=== PATIENT | female | born 1955 | race Caucasian/White ===

== ENCOUNTER 2018-03-31 16:35 | Inpatient (IN) | payer OTHER ==
[~2018-03-31] VITALS: Ht 160 cm; Wt 66.5 kg
[~2018-03-31 16:35] MED LIST: ALBU1.25 NEB; ALPR0.5T99 PO; ARIP1TAB5 PO; ASPI81TA82 PO; DUONI INH; ESTR42.5V PV; FLUO20 PO; HYDR-3533 PO; REST15CA PO; SYMB160A INH; TIOT18I INH; ZITH250T PO
[2018-03-31 16:41] VITALS: BP 188/84; PULSE 115; RESP 26; TEMP 98.8; O2SAT 100
[2018-03-31] MEDS ORDERED: ASPIRIN 325 MG TAB PO ONE (17:15)
[2018-03-31] MEDS ORDERED: MORPHINE SULFATE 2 MG/ML SYRINGE IV PUSH ONE (17:15)
[2018-03-31] MEDS ORDERED: METOCLOPRAMIDE HCL 10 MG/2 ML VIAL IV PUSH ONE (17:15)
[2018-03-31] MEDS ORDERED: SODIUM CHLORIDE 0.9% FLUSH 10 ML FLUSH IVF PRN (17:15)
[2018-03-31] MEDS ORDERED: methylPREDNISolone SOD SUCC 125 MG/2 ML VIAL IV PUSH ONE (17:15)
[2018-03-31] MEDS: RESP: ALBUTEROL 2.5 MG/IPRATROPIUM 0.5 MG NEB (SCH) INH ×3 (17:28→23:39)
[2018-03-31] MEDS ORDERED: MORPHINE SULFATE 4 MG/ML INJ IV PUSH ONE (17:30)
[2018-03-31 17:35] LABS: AUTOMATED NEUTROPHIL # 17.3 TH/MM3 (1.8-7.7); BASOPHIL # 0.1 TH/MM3 (0-0.2); BASOPHIL % 0.3 % (0.0-2.0); EOSINOPHIL # 0.1 TH/MM3 (0-0.4); EOSINOPHIL % 0.4 % (0.0-4.0); HEMATOCRIT 37.5 % (35.0-46.0); HEMOGLOBIN 12.5 GM/DL (11.6-15.3); LYMPH % 5.7 % (9.0-44.0); LYMPHOCYTE # 1.1 TH/MM3 (1.0-4.8); MEAN CELL VOLUME 92.7 FL (80.0-100.0); MEAN CORPUSCULAR HEMOGLOBIN 30.8 PG (27.0-34.0); MEAN CORPUSCULAR HGB CONC 33.3 % (32.0-36.0); MEAN PLATELET VOLUME 7.5 FL (7.0-11.0); NEUT % 88.6 % (16.0-70.0); PLATELET COUNT 240 TH/MM3 (150-450); RED BLOOD COUNT 4.05 MIL/MM3 (4.00-5.30); RED CELL DISTRIBUTION WIDTH 14.4 % (11.6-17.2); WHITE BLOOD COUNT 19.6 TH/MM3 (4.0-11.0)
[2018-03-31 17:44] LABS: PROTHROMBIN TIME - PATIENT 10.2 SEC (9.8-11.6)
--- NOTE | 2018-03-31 17:47 | RADRPT ---
EXAM DATE: 03/31/2018 5:44 PM EDT AGE/SEX: 63 years / Female INDICATIONS: Shortness of breath for 1 month. CLINICAL DATA: This is the patient's initial encounter. Patient reports that signs and symptoms have been present for 1 month and indicates a pain score of 0/10. MEDICAL/SURGICAL HISTORY: Chronic obstructive pulmonary disease. Emphysema. Carcinoma, breast . Myocardial infarction. Mastectomy, left. Heart cath. COMPARISON: . FINDINGS: A single AP view of the chest demonstrates the lungs to be symmetrically aerated without evidence of mass, infiltrate or effusion. The cardiomediastinal contours are unremarkable. Surgical clips invol ving the left axilla. Osseous structures are intact. CONCLUSION: Negative examination. Electronically signed by: River Fajardo MD 03/31/2018 5:46 PM EDT
[2018-03-31 17:51] LABS: ALBUMIN 3.2 GM/DL (3.4-5.0); ALT (GPT) 13 U/L (10-53); AST (GOT) 9 U/L (15-37); BICARBONATE 26.3 MEQ/L (21.0-32.0); BLOOD UREA NITROGEN 12 MG/DL (7-18); CALCIUM 8.6 MG/DL (8.5-10.1); CHLORIDE 99 MEQ/L (98-107); CREATININE 0.88 MG/DL (0.50-1.00); GLOMERULAR FILTRATION RATE 65 ML/MIN (>89); GLUCOSE,RANDOM 89 MG/DL (74-106); SODIUM (NA) 134 MEQ/L (136-145)
[2018-03-31 17:55] LABS: ALKALINE PHOSPHATASE 104 U/L (45-117); TOTAL BILIRUBIN ADULT 0.3 MG/DL (0.2-1.0); TOTAL PROTEIN 6.9 GM/DL (6.4-8.2); TROPONIN I LESS THAN 0.02 NG/ML (0.02-0.05)
[2018-03-31 18:00] VITALS: RESP 20; O2SAT 98
[2018-03-31] MEDS ORDERED: IOHEXOL 350 MG/ML 10 ML VIAL (for RAD DIAG) IVCONTRAST ONE (18:54)
--- NOTE | 2018-03-31 19:00 | RADRPT ---
EXAM DATE: 03/31/2018 6:53 PM EDT AGE/SEX: 63 years / Female INDICATIONS: Shortness of breath. CLINICAL DATA: This is the patient's initial encounter. Patient reports that signs and symptoms have been present for 3 days and indicates a pain score of 2/10. MEDICAL/SURGICAL HISTORY: Cardiovascular disease. Chronic obstructive pulmonary disease. Carcinom a, breast. Mastectomy, bilateral. RADIATION DOSE: 7.58 CTDI (mGy) COMPARISON: CT pulmonary angiogram 07/09/2016. TECHNIQUE: Volumetric scanning was performed using a multi-row detector CT scanner during bolus infu sree of 75 ml Omnipaque 350 (iohexol) nonionic water-soluble contrast as a single exam dose. The diana a was post processed with a variety of visualization algorithms including full volume maximum intensi ty projection and sliding thin slab reformation. Using automated exposure control and adjustment of the mA and/or kV according to patient size, radiation dose was kept as low as reasonably achievable t o obtain optimal diagnostic quality images. FINDINGS: Pulmonary Arteries: No filling defects are seen in the pulmonary arteries out to the subsegmental ve ssels. The left and right pulmonary arteries are normal in diameter. Lung: Diffuse emphysematous change throughout both upper and lower lobes. No bronchiectasis. Mucous plugging involving the medial basilar segment of the left lower lobe without collapse. Mild atelectas is within the posterior basilar segment of the right lower lobe. Mild patchy infiltrate within the me dial segment of the right middle lobe.. Effusion: Small right posterior layering pleural effusion. No effusion on the left.. Mediastinum: Heart is normal in size. Tiny pericardial effusion. No adenopathy. Pulmonary arteries a nd aorta are normal in caliber.. Other: Surgical clips involving the left axilla. No axillary adenopathy. Bilateral breast implants. Stable hepatic cysts.. CONCLUSION: 1. No pulmonary embolus. 2. Emphysematous change. 3. Right middle lobe infiltrate. This may be infectious in etiology. 4. Small right effusion. 5. Small area of mucus plugging involving the left lower lobe without atelectasis. Electronically signed by: River Fajardo MD 03/31/2018 6:59 PM EDT
[2018-03-31] MEDS ORDERED: LEVOFLOXACIN 500 MG PREMIX INJ 100 ML IV ONE (19:30)
[2018-03-31 19:31] VITALS: BP 124/68; PULSE 112; RESP 18; O2SAT 99
[2018-03-31 20:28] LABS: BACTERIA, URINE RARE /hpf; BILIRUBIN, URINE NEG (NEG); BLOOD, URINE NEG (NEG); GLUCOSE,URINE NEG (NEG); KETONE, URINE NEG (NEG); NITRITE,URINE NEG (NEG); PH, URINE 6.5 (5.0-8.5); SQUAMOUS EPITHELIAL CELL URINE 2 /hpf (0-5); URINE COLOR LIGHT-YELLOW (YELLW/STRAW); URINE LEUKOCYTE ESTERASE NEG (NEG)
--- NOTE | 2018-03-31 20:31 | PD ---
HPI Chief Complaint: Respiratory Distress Time Seen by Provider: 17:05 Travel History International Travel<30 days: No Contact w/Intl Traveler<30days: No Traveled to known affect area: No History of Present Illness HPI 63-year-old female that presents to the ED for evaluation of shortness of breath and chest pain. Patient she has had the shortness of breath for about 3 months. She has a history of COPD and recently quit smoking. Per patient for the past 3 days she has been having severe pain in her right back and right chest. She states that she has had pleurisy in the past and feels similar but the pain is not improving. She was evaluated by her primary care doctor and put on different medications. She was put on steroids as well as inhalers and antibiotics. Per patient she is been taking the medications with minimal relief. She continues to have the chest pain and shortness of breath. She states that the chest pain on the right side of the back is 7 out of 10 and causes her low distress but breathing is whenever she takes a deep breath causes a lot of pain. She has a history of kidney stones. She states that she has been peeing a lot too. She denies any fevers chills or sweats. Patient was evaluated by ambulance and brought here for evaluation. She was put on a nonrebreather and given nebulizers with improvement of symptoms and she feels better with the nonrebreather after she feels very anxious and short of breath still. PFSH Past Medical History Asthma: No Autoimmune Disease: No Anxiety: Yes (CURRENTLY TREATED WITH MEDICATION) Depression: Yes (PT REPORTS CURRENT PSYCHIATRIC TREATMENT) Heart Rhythm Problems: No Cancer: Yes (BREAST CANCER, endometrial ca) Cardiovascular Problems: No High Cholesterol: Yes Chemotherapy: Yes (15 YEARS AGO) Chest Pain: Yes (catherization) Congestive Heart Failure: No COPD: Yes Cerebrovascular Accident: No Coronary Artery Disease: No Diabetes: No Endocrine: No Gastrointestinal Disorders: Yes GERD: No Genitourinary: No Headaches: No Hiatal Hernia: No Hypertension: No Immune Disorder: No Implanted Vascular Access Dvce: Yes Kidney Stones: No Musculoskeletal: Yes (fibromyalgia) Neurologic: Yes Psychiatric: Yes (anorexia) Reproductive: Yes (ENDOMETREOSIS TREATED WITH HYSTERECTOMY) Respiratory: Yes Migraines: No Radiation Therapy: No Renal Failure: No Seizures: No Sickle Cell Disease: No Sleep Apnea: No Thyroid Disease: No Ulcer: No ?: Not Past Surgical History Abdominal Surgery: Yes (COLECYSTECTOMY) AICD: No Arteriovenous Shunt: No Body Medical Devices: BREAST IMPLANTS Cardiac Surgery: No Cholecystectomy: Yes Ear Surgery: No Endocrine Surgery: No Eye Surgery: No Genitourinary Surgery: No Gynecologic Surgery: Yes (HYSTERECTOMY) Hysterectomy: Yes Insulin Pump: No Joint Replacement: No Mastectomy: Yes (left) Neurologic Surgery: No Oral Surgery: Yes (when dentures place ) Pacemaker: No Thoracic Surgery: Yes (L MASTECTOMY) Other Surgery: Yes Social History Alcohol Use: No Tobacco Use: Yes (5 cigs per day) Substance Use: No Allergies-Medications (Allergen,Severity, Reaction): Coded Allergies: atorvastatin (Unverified Allergy, Intermediate, 03/31/18) Vomitting, Swelling cephalexin (Unverified Allergy, Intermediate, Rash, 03/31/18) lisinopril (Unverified Allergy, Intermediate, 03/31/18) Swelling, Vomitting mirtazapine (Unverified Adverse Reaction, Severe, STOMACH BLEEDING, 03/31/18 ) Reported Meds & Prescriptions Reported Meds & Active Scripts Active Review of Systems Except as stated in HPI: all other systems reviewed are Neg Physical Exam Narrative GENERAL: Well-nourished, well-developed patient in no apparent distress. SKIN: Warm and dry. HEAD: Atraumatic. Normocephalic. EYES: Pupils equal and round reactive to light and accommodation. No scleral icterus. No injection or drainage. ENT: No nasal bleeding or discharge. Mucous membranes pink and moist. TMs are clear with no sign of infection or perforation. No mastoid tenderness. Ear canals are intact bilaterally. No lymphadenopathy. Nostril mucosa is red and moist with clear mucus noted. No sinus tenderness to palpation noted. Tonsils are not enlarged or swollen. No ulvua Deviation. Tongue is midline. NECK: Trachea midline. No JVD. No meningeal signs noted CARDIOVASCULAR: Regular rate and rhythm. RESPIRATORY: No accessory muscle use. Wheezing heard in all lung odell. Breath sounds equal bilaterally. GASTROINTESTINAL: Abdomen soft, non-tender, nondistended. Hepatic and splenic margins not palpable. MUSCULOSKELETAL: Extremities without clubbing, cyanosis, or edema. No obvious deformities. NEUROLOGICAL: Awake and alert. No obvious cranial nerve deficits. Motor grossly within normal limits. Five out of 5 muscle strength in the arms and legs. Normal speech. PSYCHIATRIC: Appropriate mood and affect; insight and judgment normal. Data Data Last Documented VS Vital Signs Date Time Temp Pulse Resp B/P (MAP) Pulse Ox O2 Delivery O2 Flow Rate FiO2 03/31/18 19:31 112 18 124/68 (86) 99 Non-Rebreather 8.00 03/31/18 16:41 98.8 Orders Orders Electrocardiogram (03/31/18 17:12) Ckmb (Isoenzyme) Profile (03/31/18 17:12) Complete Blood Count With Diff (03/31/18 17:12) Comprehensive Metabolic Panel (03/31/18 17:12) Magnesium (Mg) (03/31/18 17:12) Prothrombin Time / Inr (Pt) (03/31/18 17:12) Act Partial Throm Time (Ptt) (03/31/18 17:12) Troponin I (03/31/18 17:12) Lipase (03/31/18 17:12) Chest, Single Ap (03/31/18 17:12) Ecg Monitoring (03/31/18 17:12) Bilateral Bp Monitoring (03/31/18 17:12) Iv Access Insert/Monitor (03/31/18 17:12) Oximetry (03/31/18 17:12) Oxygen Administration (03/31/18 17:12) Aspirin (Aspirin) (03/31/18 17:15) Sodium Chloride 0.9% Flush (Ns Flush) (03/31/18 17:15) Methylprednisolone So Succ Inj (Solumedr (03/31/18 17:15) Albuterol-Ipratropium Neb (Duoneb Neb) (03/31/18 17:15) Morphine Inj (Morphine Inj) (03/31/18 17:15) Metoclopramide Inj (Reglan Inj) (03/31/18 17:15) Urinalysis - C+S If Indicated (03/31/18 17:12) Morphine Inj (Morphine Inj) (03/31/18 17:30) Ct Pulmonary Angiogram (03/31/18 ) Iohexol 350 Inj (Omnipaque 350 Inj) (03/31/18 18:54) Levofloxacin 500 Mg Premix Inj (Levaquin (03/31/18 19:30) Lactic Acid Sepsis Protocol (03/31/18 20:02) Admit Order (Ed Use Only) (03/31/18 20:08) Labs Laboratory Tests Test 03/31/18 12:00 03/31/18 20:00 White Blood Count 19.6 TH/MM3 Red Blood Count 4.05 MIL/MM3 Hemoglobin 12.5 GM/DL Hematocrit 37.5 % Mean Corpuscular Volume 92.7 FL Mean Corpuscular Hemoglobin 30.8 PG Mean Corpuscular Hemoglobin Concent 33.3 % Red Cell Distribution Width 14.4 % Platelet Count 240 TH/MM3 Mean Platelet Volume 7.5 FL Neutrophils (%) (Auto) 88.6 % Lymphocytes (%) (Auto) 5.7 % Monocytes (%) (Auto) 5.0 % Eosinophils (%) (Auto) 0.4 % Basophils (%) (Auto) 0.3 % Neutrophils # (Auto) 17.3 TH/MM3 Lymphocytes # (Auto) 1.1 TH/MM3 Monocytes # (Auto) 1.0 TH/MM3 Eosinophils # (Auto) 0.1 TH/MM3 Basophils # (Auto) 0.1 TH/MM3 CBC Comment DIFF FINAL Differential Comment Prothrombin Time 10.2 SEC Prothromb Time International Ratio 1.0 RATIO Activated Partial Thromboplast Time 27.0 SEC Blood Urea Nitrogen 12 MG/DL Creatinine 0.88 MG/DL Random Glucose 89 MG/DL Total Protein 6.9 GM/DL Albumin 3.2 GM/DL Calcium Level 8.6 MG/DL Magnesium Level 2.0 MG/DL Alkaline Phosphatase 104 U/L Aspartate Amino Transf (AST/SGOT) 9 U/L Alanine Aminotransferase (ALT/SGPT) 13 U/L Total Bilirubin 0.3 MG/DL Sodium Level 134 MEQ/L Potassium Level 3.1 MEQ/L Chloride Level 99 MEQ/L Carbon Dioxide Level 26.3 MEQ/L Anion Gap 9 MEQ/L Estimat Glomerular Filtration Rate 65 ML/MIN Total Creatine Kinase 38 U/L Troponin I LESS THAN 0.02 NG/ML Lipase 55 U/L MDM Medical Decision Making Medical Screen Exam Complete: Yes Emergency Medical Condition: Yes Medical Record Reviewed: Yes Interpretation(s) CBC & BMP Diagram 03/31/18 12:00 Total Protein 6.9, Albumin 3.2 L, Calcium Level 8.6, Magnesium Level 2.0, Alkaline Phosphatase 104, Aspartate Amino Transf (AST/SGOT) 9 L, Alanine Aminotransferase (ALT/SGPT) 13, Total Bilirubin 0.3 Last Impressions Chest X-Ray 03/31/18 1712 Signed Impressions: CONCLUSION: Negative examination. CT Angiography 03/31/18 0000 Signed Impressions: CONCLUSION: 1. No pulmonary embolus. 2. Emphysematous change. 3. Right middle lobe infiltrate. This may be infectious in etiology. 4. Small right effusion. 5. Small area of mucus plugging involving the left lower lobe without atelecta sis. Troponin and CK-MB negative. EKG shows sinus tachycardia otherwise no sign of acute ischemia or arrhythmia. Differential Diagnosis COPD exacerbation versus chest pain versus typical chest pain versus pulmonary embolism versus pneumonia Narrative Course 63-year-old female that presents to the ED for evaluation of shortness of breath and chest pain. Patient was properly examined and was found to have signs and symptoms of unclear etiology with deafly concerning for PE versus pneumonia versus COPD exacerbation. Labs and imaging were ordered. Labs and imaging were essentially unremarkable other than for what appears to be pneumonia. CTA was negative for PE. Patient still not improving after pain medications, nebulizers as well as Solu-Medrol given. Patient apparently has been on antibiotics already because of the symptoms. This time her condition is for admission for further evaluation. Patient agrees. Case discussed with the residents agreed to admission. Diagnosis Primary Impression: COPD exacerbation Additional Impression: Pneumonia Qualified Codes: J18.1 - Lobar pneumonia, unspecified organism Admitting Information Admitting Physician Requests: Shorty Yeh Mar 31, 2018 20:31
[2018-03-31] MEDS ORDERED: SODIUM CHLORIDE 0.9% FLUSH 10 ML FLUSH IV FLUSH PRN (22:15)
[2018-03-31] MEDS: ENOXAPARIN SODIUM 40 MG/0.4 ML SYRINGE SQ SCH (22:15)
[2018-03-31] MEDS ORDERED: RESP: ALBUTEROL 2.5 MG/3 ML NEB (PRN) INH (22:15)
[2018-03-31] MEDS ORDERED: POTASSIUM CHLORIDE 10 MEQ CONTROLLED RELEASE TAB PO ONE (22:15)
[2018-03-31 23:38] VITALS: O2SAT 99
[2018-04-01] VITALS (28 sets, daily range): BP systolic 98–126; BP diastolic 68–82; PULSE 75–112; RESP 18–24; TEMP 97.1–97.8; O2SAT 92–99
[2018-04-01] MEDS ORDERED: ACETAMINOPHEN 325 MG TAB PO PRN (00:45)
--- NOTE | 2018-04-01 00:48 | HHI.HP ---
[facility] Service Family Medicine Primary Care Physician Shawn Leon, DO Admission Diagnosis COPD exacerbation, pneumonia, failed outpatient treatment Diagnoses: Chief Complaint: SOB and CP International Travel<30 Days: No Contact w/Intl Traveler<30days: No Known Affected Area: No History of Present Illness Ms Frost is a 63 YO female with PMHx STEMI in 2013 with heart cath, breast, ovarian and uterine cancer s/p chemo, mastectomy/breast reconstruction and hysterectomy, HLD, HTN, fibromyalgia, depression/anxiety and COPD who presents to the ED in acute respiratory distress. Pt states she has been getting progressively SOB for the last three months and then today acutely worse with CP that is substernal with intense radiation to her right middle back. She also states she has had fevers for at least 2 days and chills yesterday. She is a 1/ 2 ppd smoker for as long as she can remember, but today states she does not want to ever smoke again. Reports that she has no supplemental O2 requirement at home, and takes spiriva, proair and symbicort at home to help control her COPD along with occasional albuterol nebulizer. Review of Systems Constitutional: COMPLAINS OF: Fever (2 days ago), Chills (yesterday), DENIES: Dizziness Eyes: DENIES: Vision loss Ears, nose, mouth, throat: DENIES: Oral lesions, Throat pain Respiratory: COMPLAINS OF: Cough, Wheezing, Shortness of breath, DENIES: Sputum production Cardiovascular: COMPLAINS OF: Chest pain, Dyspnea on Exertion, DENIES: Palpitations, Lower Extremity Edema, Orthopnea Gastrointestinal: COMPLAINS OF: Vomiting (nonbloody, nonbilious emesis this morning), DENIES: Abdominal pain, Constipation, Diarrhea, Nausea Musculoskeletal: COMPLAINS OF: Back pain Integumentary: DENIES: Pruritus, Rash Psychiatric: COMPLAINS OF: Anxiety, Depression Past Family Social History Past Medical History COPD HTN HLD Depression Anxiety Breast cancer Uterine cancer Ovarian cancer Past Surgical History Hysterectomy Mastectomy s/p 3 breast reconstructions of left breast Cholecystectomy Reported Medications Reported Meds & Active Scripts Active Reports: Spiriva Symbicort Proair Abilify Prozac Allergies: Coded Allergies: atorvastatin (Unverified Allergy, Intermediate, 03/31/18) Vomitting, Swelling cephalexin (Unverified Allergy, Intermediate, Rash, 03/31/18) lisinopril (Unverified Allergy, Intermediate, 03/31/18) Swelling, Vomitting mirtazapine (Unverified Adverse Reaction, Severe, STOMACH BLEEDING, 03/31/18 ) Active Ordered Medications Current Medications Medications (Trade) Dose Ordered Sig/Kong Route Start Time Stop Time Status Last Admin (NS Flush) 2 ml BID IV FLUSH 04/01/18 09:00 (NS Flush) 2 ml UNSCH PRN IV FLUSH 03/31/18 22:15 (Duoneb Neb) 1 ampule Q4HR NEB INH 04/01/18 00:00 03/31/18 23:39 (Albuterol Neb) 2.5 mg Q2HR NEB PRN INH 03/31/18 22:15 (Symbicort 160-4.5 Mcg Inh) 2 puff Q12HR INH 04/01/18 09:00 (Deltasone) 40 mg DAILY PO 04/01/18 09:00 (Levaquin) 750 mg Q24H PO 04/01/18 20:00 (Habitrol 21 Mg Patch.24 Hr) 1 patch DAILY TD 04/01/18 09:00 (Lovenox Inj) 40 mg Q24H SQ 03/31/18 22:15 03/31/18 22:15 (Pepcid) 20 mg BID PO 04/01/18 09:00 (Tylenol) 650 mg Q6HR PRN PO 04/01/18 00:45 ([place] 5-325 Mg) 1 tab Q6H PRN PO 04/01/18 00:45 (Morphine Inj) 2 mg Q4H PRN IV PUSH 04/01/18 00:45 Family History Father - lung cancer (smoker) Mother - breast cancer, age 74 Two brothers dies of MIs this year Social History 1/2 ppd smoker "for as long as she can remember" Social drinker - drank one cathy one her birthday a week ago Occasional marijuana Physical Exam Vital Signs Vital Signs Date Time Temp Pulse Resp B/P (MAP) Pulse Ox O2 Delivery O2 Flow Rate FiO2 04/01/18 00:13 03/31/18 23:38 99 Non-Rebreather 12.00 03/31/18 19:31 112 18 124/68 (86) 99 Non-Rebreather 8.00 03/31/18 18:50 98 Partial Rebreather 8.00 03/31/18 18:00 20 98 Partial Rebreather 15.00 03/31/18 18:00 98 Partial Rebreather 15.00 03/31/18 16:48 100 Non-Rebreather 15.00 03/31/18 16:41 98.8 115 26 188/84 118 100 Physical Exam GENERAL: This is a well-nourished, well-developed patient, in mild respiratory distress with partial rebreather mask. SKIN: No rashes, ecchymoses or lesions. Cool and dry. HEAD: Atraumatic. Normocephalic. EYES: Pupils equal round and reactive. Extraocular motions intact. No scleral icterus. No injection or drainage. ENT: Nose without drainage. Throat without erythema, tonsillar hypertrophy or exudate. Uvula midline. Airway patent. NECK: Trachea midline. Supple, nontender, no meningeal signs. CARDIOVASCULAR: Mildly tachycardic, regular rhythm without murmurs, gallops, or rubs. RESPIRATORY: Expiratory wheezing with vesicular breath sounds in all lung odell and worse at bilateral lung bases. Mild accessory muscle use and increased WOB satting 100% on 12L partial rebreather mask. GASTROINTESTINAL: Abdomen soft, non-tender, nondistended. No palpable masses. No guarding. Normal BS. MUSCULOSKELETAL: Extremities without clubbing, cyanosis, or edema. No joint tenderness, effusion, or edema noted. No calf tenderness. Arms shaky during exam. NEUROLOGICAL: Awake and alert. Cranial nerves II through XII intact. Motor and sensory grossly within normal limits. Normal speech. Laboratory Laboratory Tests Test 03/31/18 12:00 03/31/18 20:00 03/31/18 20:58 03/31/18 23:50 White Blood Count 19.6 Red Blood Count 4.05 Hemoglobin 12.5 Hematocrit 37.5 Mean Corpuscular Volume 92.7 Mean Corpuscular Hemoglobin 30.8 Mean Corpuscular Hemoglobin Concent 33.3 Red Cell Distribution Width 14.4 Platelet Count 240 Mean Platelet Volume 7.5 Neutrophils (%) (Auto) 88.6 Lymphocytes (%) (Auto) 5.7 Monocytes (%) (Auto) 5.0 Eosinophils (%) (Auto) 0.4 Basophils (%) (Auto) 0.3 Neutrophils # (Auto) 17.3 Lymphocytes # (Auto) 1.1 Monocytes # (Auto) 1.0 Eosinophils # (Auto) 0.1 Basophils # (Auto) 0.1 CBC Comment DIFF FINAL Differential Comment Prothrombin Time 10.2 Prothromb Time International Ratio 1.0 Activated Partial Thromboplast Time 27.0 Blood Urea Nitrogen 12 Creatinine 0.88 Random Glucose 89 Total Protein 6.9 Albumin 3.2 Calcium Level 8.6 Magnesium Level 2.0 Alkaline Phosphatase 104 Aspartate Amino Transf (AST/SGOT) 9 Alanine Aminotransferase (ALT/SGPT) 13 Total Bilirubin 0.3 Sodium Level 134 Potassium Level 3.1 Chloride Level 99 Carbon Dioxide Level 26.3 Anion Gap 9 Estimat Glomerular Filtration Rate 65 Total Creatine Kinase 38 Troponin I LESS THAN 0.02 LESS THAN 0.02 Lipase 55 Urine Color LIGHT-YELLOW Urine Turbidity CLEAR Urine pH 6.5 Urine Specific [place] 1.019 Urine Protein NEG Urine Glucose (UA) NEG Urine Ketones NEG Urine Occult Blood NEG Urine Nitrite NEG Urine Bilirubin NEG Urine Urobilinogen LESS THAN 2.0 Urine Leukocyte Esterase NEG Urine RBC 1 Urine WBC 1 Urine Squamous Epithelial Cells 2 Urine Bacteria RARE Microscopic Urinalysis Comment CULT NOT INDICATED Lactic Acid Level 1.0 B-Type Natriuretic Peptide 23 Date/Time Source Procedure Growth Status 03/31/18 23:55 Blood Peripheral Aerobic Blood Culture Pending Received 03/31/18 23:55 Blood Peripheral Anaerobic Blood Culture Pending Received 03/31/18 23:55 Nasal Washing Influenza Types A,B Antigen (SOHAN) - Final NEGATIVE FOR FLU A AND B ANTIGEN.... Complete 03/31/18 20:00 Urine Random Urine Legionella Antigen Pending Received 03/31/18 20:00 Urine Random Urine Streptococcus pneumoniae Antigen (M Pending Received Result Diagram: 03/31/18 1200 03/31/18 1200 Imaging Last Impressions Chest X-Ray 03/31/18 1712 Signed Impressions: CONCLUSION: Negative examination. CT Angiography 03/31/18 0000 Signed Impressions: CONCLUSION: 1. No pulmonary embolus. 2. Emphysematous change. 3. Right middle lobe infiltrate. This may be infectious in etiology. 4. Small right effusion. 5. Small area of mucus plugging involving the left lower lobe without atelecta sis. I spoke to Dr Fajardo about the pt's tearing CP to the back and he re-looked at the CTA images and states there is no aortic dissection. Septic Shock Reassessment Septic shock perfusion: reassessment completed Caprini VTE Risk Assessment Caprini VTE Risk Assessment: Mod/High Risk (score >= 2) Caprini Risk Assessment Model Point Value = 1 Point Value = 2 Point Value = 3 Point Value = 5 Age 41-60 Minor surgery BMI > 25 kg/m2 Swollen legs Varicose veins or History of unexplained or recurrent spontaneous Oral contraceptives or hormone replacement Sepsis (< 1 month) Serious lung disease, including pneumonia (< 1 month) Abnormal pulmonary function Acute myocardial infarction Congestive heart failure (< 1 month) History of inflammatory bowel disease Medical patient at bed rest Age 61-74 Arthroscopic surgery Major open surgery (> 45 min) Laparoscopic surgery (> 45 min) Malignancy Confined to bed (> 72 hours) Immobilizing plaster cast Central venous access Age >= 75 History of VTE Family history of VTE Factor V Leiden Prothrombin [id number] Lupus anticoagulant Anticardiolipin antibodies Elevated serum homocysteine Heparin-induced thrombocytopenia Other congenital or acquired thrombophilia Stroke (< 1 month) Elective arthroplasty Hip, pelvis, or leg fracture Acute spinal cord injury (< 1 month) Prophylaxis Regimen Total Risk Factor Score Risk Level Prophylaxis Regimen 0-1 Low Early ambulation 2 Moderate Order ONE of the following: *Sequential Compression Device (SCD) *Heparin 5000 units SQ BID 3-4 Higher Order ONE of the following medications: *Heparin 5000 units SQ TID *Enoxaparin/Lovenox 40 mg SQ daily (WT < 150 kg, CrCl > 30 mL/min) *Enoxaparin/Lovenox 30 mg SQ daily (WT < 150 kg, CrCl > 10-29 mL/min) *Enoxaparin/Lovenox 30 mg SQ BID (WT < 150 kg, CrCl > 30 mL/min) AND/OR *Sequential Compression Device (SCD) 5 or more Highest Order ONE of the following medications: *Heparin 5000 units SQ TID (Preferred with Epidurals) *Enoxaparin/Lovenox 40 mg SQ daily (WT < 150 kg, CrCl > 30 mL/min) *Enoxaparin/Lovenox 30 mg SQ daily (WT < 150 kg, CrCl > 10-29 mL/min) *Enoxaparin/Lovenox 30 mg SQ BID (WT < 150 kg, CrCl > 30 mL/min) AND *Sequential Compression Device (SCD) Assessment and Plan Assessment and Plan 63 YO female with PMHx STEMI in 2013 with heart cath; breast, ovarian and uterine cancer s/p chemo, mastectomy/breast reconstruction and hysterectomy; HLD , HTN, fibromyalgia, depression/anxiety and COPD who presents to the ED with progressively worsening SOB and new onset CP with COPD exacerbation and possible community acquired pneumonia based on CTA. There is no PE or aortic dissection. We will r/o ACS. Impression: STEMI in 2013 with cath showing normal but atretic LAD and CFX vessels; ECHO showing EF55% with no wall abnormalities EKG showing sinus tachycardia, poss right and left atrial enlargement, borderline right axis deviation Elevated BP 188/84 on admission normalized on supplemental O2 and pain control COPD worsening, possibly due to CAP (CTA showing RML opacity/infiltrate, WBC 19.6 with predominant neutrofils 87%) Troponins 0.02 x2 BNP 23 Electrolyte abnormalities: Na 134 and K 3.1 INR wnl UA negative for infection Code Status FULL Discussed Condition With Dr Flores Problem List: (1) COPD exacerbation ICD Codes: J44.1 - Obstructive chronic bronchitis with exacerbation Status: Acute Plan: Pt with SOB and CP on admission with extensive smoking hx and COPD. Progressively worsening the last 3 months and now with RML opacity. -Solumedrol 125mg in ED -Duonebs q4h -Albuterol nebs q2h -Symbicort 2 puffs q12h -Supplemental O2 to keep O2 sats >88% -Start Prednisone 40mg PO daily on 04/01 -Received levaquin 500mg IV once in ED -Levaquin 750 mg PO daily on 04/01 x4 days -Pulse ox continuous NOTE: Pt has papers from a previous hospitalization indicating she is allergic to betalactams and cephalosporins; pt was not able to further elaborate on this (2) Pneumonia ICD Codes: J18.9 - Pneumonia, unspecified organism Status: Acute Plan: CTA showing RML infiltrate vs opacity, WBC 19.6 with left shift, pt with subjective fevers over the past 2 days; treat empirically -Levaquin as above -Steroids as above -Breathing treatment as above (3) SOB (shortness of breath) ICD Codes: R06.02 - Shortness of breath Status: Acute Plan: As per above (4) Chest pain due to coronary artery disease ICD Codes: R07.9 - Chest pain, unspecified; I25.10 - Atherosclerotic heart disease of [place] coronary artery without angina pectoris Plan: Pt has substernal CP with acute radiating pain to the back. CTA has ruled out PE and per discussion with Dr Fajardo in radiology, low suspicion for dissection. Troponins and BNP wnl. - -ASA 325 mg chew in ED -Tylenol 650 mg PO q6h pain 1-3/Temp >100.4 -[place] 5-325mg PO q6h pain 4-10 -Morphine 2mg q3h IV breakthru pain -ECHO -Consider Cardiology consult if not resolved in AM -Serial troponins and EKGs -Lovenox 40mg SQ daily (5) Depression ICD Codes: F32.9 - Depression Status: Chronic Plan: Continue pt's home meds -Prozac 40mg daily -Abilify 15 mg daily (6) Anxiety ICD Codes: F41.9 - Anxiety Status: Acute Plan: Holding pt's reported Xanax 0.5mg q6h (7) Tobacco abuse ICD Codes: Z72.0 - Tobacco use Status: Acute Plan: Nicotine patch q24h (8) FEN/GI/PPx Plan: Fluids: PO fluids with 2L fluid restriction due to mild hyponatremia Electrolytes: Fluid restriction as above and KCl 50meq PO for K+ at 3.1; monitor with daily BMP Nutrition: Heart healthy diet GI: Famotidine 20mg BID PPx: Lovenox as above CM consult to assess for needs COPD consult Physician Certification 2 Midnight Certification Type: Admission for Inpatient Services Order for Inpatient Services The services are ordered in accordance with Medicare regulations or non- Medicare payer requirements, as applicable. In the case of services not specified as inpatient-only, they are appropriately provided as inpatient services in accordance with the 2-midnight benchmark. Estimated LOS (days): 2 days is the estimated time the patient will need to remain in the hospital, assuming treatment plan goals are met and no additional complications. Post-Hospital Plan: Home Problem Qualifiers (1) Pneumonia: Qualified Codes: J18.1 - Lobar pneumonia, unspecified organism Kelvin Lane MD R1 Apr 01, 2018 00:48
[2018-04-01] MEDS: MORPHINE SULFATE 4 MG/ML INJ IV PUSH PRN (00:53)
[2018-04-01] MEDS: RESP: ALBUTEROL 2.5 MG/IPRATROPIUM 0.5 MG NEB (SCH) INH ×6 (02:53→23:34)
[2018-04-01] MEDS: BUDESONIDE-FORMOTEROL 160/4.5 MCG INHALER INH SCH ×4 (08:08→21:00)
[2018-04-01] MEDS: predniSONE 20 MG TAB PO SCH (08:09)
[2018-04-01] MEDS: ASPIRIN 81 MG CHEW TAB CHEW SCH (08:09)
[2018-04-01] MEDS: FAMOTIDINE 20 MG TAB PO SCH ×2 (08:09→21:17)
[2018-04-01] MEDS: NICOTINE 21 MG/24 HR PATCH TD SCH (08:10)
[2018-04-01] MEDS: ACETAMINOPHEN/HYDROcodone 325 MG/5 MG TAB PO PRN ×4 (08:10→21:18)
[2018-04-01] MEDS: SODIUM CHLORIDE 0.9% FLUSH 10 ML FLUSH IV FLUSH SCH ×2 (08:11→21:00)
[2018-04-01] MEDS ORDERED: DOCUSATE SODIUM 50 MG/SENNA 8.6 MG TAB PO SCH (09:00)
[2018-04-01] MEDS ORDERED: SENNOSIDES 8.6 MG TAB PO PRN (09:30)
[2018-04-01] MEDS ORDERED: BISACODYL 10 MG SUPP RECTAL PRN (09:30)
[2018-04-01] MEDS ORDERED: MAGNESIUM HYDROXIDE SUSP 30 ML CUP PO PRN (09:30)
[2018-04-01] MEDS ORDERED: LACTULOSE SYRUP 20 GM/30 ML CUP PO PRN (09:30)
[2018-04-01] MEDS: DOCUSATE SODIUM 50 MG/SENNA 8.6 MG TAB PO SCH ×2 (10:00→21:00)
[2018-04-01 10:50] LABS: AUTOMATED NEUTROPHIL # 14.2 TH/MM3 (1.8-7.7); BASOPHIL % 0.1 % (0.0-2.0); HEMOGLOBIN 12.8 GM/DL (11.6-15.3); LYMPH % 2.7 % (9.0-44.0); LYMPHOCYTE # 0.4 TH/MM3 (1.0-4.8); MEAN CELL VOLUME 93.1 FL (80.0-100.0); MEAN CORPUSCULAR HEMOGLOBIN 30.5 PG (27.0-34.0); MEAN CORPUSCULAR HGB CONC 32.8 % (32.0-36.0); MEAN PLATELET VOLUME 7.4 FL (7.0-11.0); MONO % 4.1 % (0.0-8.0); MONOCYTE # 0.6 TH/MM3 (0-0.9); NEUT % 93.1 % (16.0-70.0); PLATELET COUNT 248 TH/MM3 (150-450); RED BLOOD COUNT 4.19 MIL/MM3 (4.00-5.30); RED CELL DISTRIBUTION WIDTH 14.7 % (11.6-17.2); WHITE BLOOD COUNT 15.3 TH/MM3 (4.0-11.0)
[2018-04-01 11:05] LABS: CREATININE 0.81 MG/DL (0.50-1.00)
[2018-04-01] MEDS: ALPRAZolam 0.5 MG TAB PO SCH ×3 (13:27→23:33)
--- NOTE | 2018-04-01 14:03 | HHI.FPPN ---
Subjective Remarks 63-year-old female with known COPD here with complaint of 3 weeks of fatigue, air hunger, decreased exercise intolerance and inability to do her own housekeeping or to walk any farther than 25 feet. She complains of central chest pain that is tearing in nature and radiates to her back. Also complained of shortness of breath with fever, chills and vomiting. She has recently been smoking one half pack of cigarettes per day and has not been on oxygen at home. History of STEMI in 2012 at which time she had a heart cath, and breast cancer greater than 15 years ago for which she had chemotherapy. This morning, she is tearful, saying she cannot go home without oxygen, anxious and tremulous. When initially seen, she was on 4 L of nasal oxygen and had been showing oxygen saturations of 98- 100 consistently since admission. O2 was decreased to 2 liters/min. Pt. complains of wheezing bilaterally. Objective Vitals Vital Signs Date Time Temp Pulse Resp B/P (MAP) Pulse Ox O2 Delivery O2 Flow Rate FiO2 04/01/18 12:01 90 04/01/18 11:30 97.7 96 18 115/75 (88) 98 04/01/18 11:00 95 04/01/18 10:00 90 04/01/18 09:15 95 Nasal Cannula 4.00 04/01/18 09:00 82 04/01/18 08:01 97.5 89 18 109/81 (90) 99 04/01/18 08:00 78 04/01/18 07:00 88 04/01/18 06:00 88 04/01/18 05:00 75 04/01/18 04:00 97.1 85 24 98/70 (79) 99 04/01/18 04:00 77 04/01/18 03:02 98 Simple Mask 8.00 04/01/18 03:00 84 04/01/18 02:00 104 04/01/18 01:00 96 04/01/18 00:28 97.8 96 24 101/71 (81) 98 04/01/18 00:28 95 04/01/18 00:13 03/31/18 23:38 99 Non-Rebreather 12.00 03/31/18 19:31 112 18 124/68 (86) 99 Non-Rebreather 8.00 03/31/18 18:50 98 Partial Rebreather 8.00 03/31/18 18:00 20 98 Partial Rebreather 15.00 03/31/18 18:00 98 Partial Rebreather 15.00 03/31/18 16:48 100 Non-Rebreather 15.00 03/31/18 16:41 98.8 115 26 188/84 (118) 100 I/O 03/31/18 03/31/18 03/31/18 04/01/18 04/01/18 04/01/18 07:00 15:00 23:00 07:00 15:00 23:00 Intake Total 240 ml Balance 240 ml Intake Oral 240 ml # Voids 1 Result Diagram: 04/01/18 1018 04/01/18 1018 Other Results Laboratory Tests Test 03/31/18 20:00 03/31/18 20:58 03/31/18 23:50 04/01/18 10:18 Urine Color LIGHT-YELLOW Urine Turbidity CLEAR Urine pH 6.5 Urine Specific [place] 1.019 Urine Protein NEG mg/dL Urine Glucose (UA) NEG mg/dL Urine Ketones NEG mg/dL Urine Occult Blood NEG Urine Nitrite NEG Urine Bilirubin NEG Urine Urobilinogen LESS THAN 2.0 MG/DL Urine Leukocyte Esterase NEG Urine RBC 1 /hpf Urine WBC 1 /hpf Urine Squamous Epithelial Cells 2 /hpf Urine Bacteria RARE /hpf Microscopic Urinalysis Comment CULT NOT INDICATED Lactic Acid Level 1.0 mmol/L Troponin I LESS THAN 0.02 NG/ML B-Type Natriuretic Peptide 23 PG/ML White Blood Count 15.3 TH/MM3 Red Blood Count 4.19 MIL/MM3 Hemoglobin 12.8 GM/DL Hematocrit 39.0 % Mean Corpuscular Volume 93.1 FL Mean Corpuscular Hemoglobin 30.5 PG Mean Corpuscular Hemoglobin Concent 32.8 % Red Cell Distribution Width 14.7 % Platelet Count 248 TH/MM3 Mean Platelet Volume 7.4 FL Neutrophils (%) (Auto) 93.1 % Lymphocytes (%) (Auto) 2.7 % Monocytes (%) (Auto) 4.1 % Eosinophils (%) (Auto) 0.0 % Basophils (%) (Auto) 0.1 % Neutrophils # (Auto) 14.2 TH/MM3 Lymphocytes # (Auto) 0.4 TH/MM3 Monocytes # (Auto) 0.6 TH/MM3 Eosinophils # (Auto) 0.0 TH/MM3 Basophils # (Auto) 0.0 TH/MM3 CBC Comment DIFF FINAL Differential Comment Blood Urea Nitrogen 10 MG/DL Creatinine 0.81 MG/DL Random Glucose 124 MG/DL Calcium Level 10.0 MG/DL Sodium Level 139 MEQ/L Potassium Level 3.6 MEQ/L Chloride Level 102 MEQ/L Carbon Dioxide Level 28.0 MEQ/L Anion Gap 9 MEQ/L Estimat Glomerular Filtration Rate 72 ML/MIN Imaging Last Impressions Chest X-Ray 03/31/18 1712 Signed Impressions: CONCLUSION: Negative examination. CT Angiography 03/31/18 0000 Signed Impressions: CONCLUSION: 1. No pulmonary embolus. 2. Emphysematous change. 3. Right middle lobe infiltrate. This may be infectious in etiology. 4. Small right effusion. 5. Small area of mucus plugging involving the left lower lobe without atelecta sis. Objective Remarks O. CONSTITUTIONAL/GEN: normally nourished, in distress with tearfulness and tremulousness. EYES: conjunctiva normal, PERRLA, EOMI. ENT: She has dentures NECK: Supple LUNGS: Diminished but somewhat coarse breath sounds throughout. CARDIOVASCULAR: RR without murmur or gallop. No significant edema. GI/ABD: soft without masses, without organomegaly. NEURO: No focal deficits. SKIN: color normal, no rashes noted. HEME/LYMPH: no bruising, petechia or significant adenopathy MUSC: back is normal in appearance. Extremities are normal in appearance. PSYCH/MENTAL STATUS: Alert and oriented x 3. A/P Assessment and Plan 63 YO female with PMHx STEMI in 2013 with heart cath; breast, ovarian and uterine cancer s/p chemo, mastectomy/breast reconstruction and hysterectomy; HLD , HTN, fibromyalgia, depression/anxiety and COPD who presents to the ED with progressively worsening SOB and new onset CP with COPD exacerbation and possible community acquired pneumonia based on CTA. There is no PE or aortic dissection. We will r/o ACS. Impression: STEMI in 2013 with cath showing normal but atretic LAD and CFX vessels; ECHO showing EF55% with no wall abnormalities EKG showing sinus tachycardia, poss right and left atrial enlargement, borderline right axis deviation Elevated BP 188/84 on admission normalized on supplemental O2 and pain control COPD worsening, possibly due to CAP (CTA showing RML opacity/infiltrate, WBC 19.6 with predominant neutrofils 87%) Troponins 0.02 x2 BNP 23 Electrolyte abnormalities: Na 134 and K 3.1 INR wnl UA negative for infection Discharge Planning Walk test 04-02-18; anticipate possible discharge 04-02-18 Attending Attestation Patient seen and examined. Case reviewed and discussed with the resident team. Agree with plan of care as discussed with me and documented in the resident note. Problem List: (1) COPD exacerbation ICD Codes: J44.1 - Obstructive chronic bronchitis with exacerbation Status: Acute Plan: Pt with SOB and CP on admission with extensive smoking hx and COPD. Progressively worsening the last 3 months and now with RML opacity. -Duonebs q4h -Albuterol nebs q2h -Symbicort 2 puffs q12h -Supplemental O2 to keep O2 sats >88% -Prednisone 40mg PO daily -Received levaquin 500mg IV once in ED -Levaquin 750 mg PO daily x4 days -Pulse ox continuous NOTE: Pt has papers from a previous hospitalization indicating she is allergic to betalactams and cephalosporins; pt was not able to further elaborate on this (2) Pneumonia ICD Codes: J18.9 - Pneumonia, unspecified organism Status: Acute Plan: CTA showing RML infiltrate vs opacity, WBC 19.6 with left shift, pt with subjective fevers over the past 2 days; treat empirically -Levaquin as above -Steroids as above -Breathing treatment as above (3) SOB (shortness of breath) ICD Codes: R06.02 - Shortness of breath Status: Acute Plan: As per above (4) Chest pain due to coronary artery disease ICD Codes: R07.9 - Chest pain, unspecified; I25.10 - Atherosclerotic heart disease of [place] coronary artery without angina pectoris Plan: Pt has substernal CP with acute radiating pain to the back. CTA has ruled out PE and per discussion with Dr Fajadro in radiology, low suspicion for dissection. Troponins and BNP wnl. - -ASA 325 mg chew in ED -Tylenol 650 mg PO q6h pain 1-3/Temp >100.4 -[place] 5-325mg PO q6h pain 4-10 -Morphine 2mg q3h IV breakthru pain -ECHO -Consider Cardiology consult if not resolved in AM -Serial troponins and EKGs -Lovenox 40mg SQ daily (5) Depression ICD Codes: F32.9 - Depression Status: Chronic Plan: Continue pt's home meds -Prozac 40mg daily -Abilify 15 mg daily (6) Anxiety ICD Codes: F41.9 - Anxiety Status: Acute Plan: Resuming pt's reported Xanax 0.5mg q6h (7) Tobacco abuse ICD Codes: Z72.0 - Tobacco use Status: Acute Plan: Nicotine patch q24h (8) FEN/GI/PPx Plan: Fluids: PO fluids with 2L fluid restriction due to mild hyponatremia Electrolytes: Fluid restriction as above and KCl 50meq PO for K+ at 3.1; monitor with daily BMP Nutrition: Heart healthy diet GI: Famotidine 20mg BID PPx: Lovenox as above CM consult to assess for needs COPD consult Problem Qualifiers (1) Pneumonia: Qualified Codes: J18.1 - Lobar pneumonia, unspecified organism Beatrice Blackmon MD Apr 01, 2018 14:03
[2018-04-01] MEDS: TIOTROPIUM BROMIDE 18 MCG INH INH SCH (15:09)
[2018-04-01] MEDS: ARIPiprazole 10 MG TAB PO SCH (15:09)
--- NOTE | 2018-04-01 19:04 | EKG ---
Date Performed: 03/31/2018 Time Performed: 15:47:44 PTAGE: 63 years EKG: SINUS TACHYCARDIA POSSIBLE RIGHT ATRIAL ENLARGEMENT POSSIBLE LEFT ATRIAL ENLARGEMENT BORDER LINE RIGHT AXIS DEVIATION Since previous tracing, no significant change noted, but the Electrocardiog ruddy continues to suggest right atrial strain. Pulmonary disease including embolus should be excluded clinically. ABNORMAL RHYTHM ECG PREVIOUS TRACING : 07/09/2016 20.08 DOCTOR: Mary Ellen Deal Interpretating Date/Time 04/01/2018 19:03:39
--- NOTE | 2018-04-01 19:06 | EKG ---
Date Performed: 04/01/2018 Time Performed: 05:59:32 PTAGE: 63 years EKG: Sinus rhythm Rightward axis When compared to previous tracing, the sinus tachycardia and The criteria for right a trial enlargement are no longer evident. Clinical correlation is recommended Borderline ECG PREVIOUS TRACING : 03/31/2018 15.47.44 DOCTOR: Mary Ellen Deal Interpretating Date/Time 04/01/2018 19:06:04
[2018-04-01] MEDS: traZODone HCL 50 MG TAB PO SCH (21:17)
[2018-04-01] MEDS: LEVOFLOXACIN 750 MG TAB PO SCH (21:17)
[2018-04-01] MEDS: ENOXAPARIN SODIUM 40 MG/0.4 ML SYRINGE SQ SCH (21:20)
[2018-04-01] MEDS: TEMAZEPAM 15 MG CAP PO PRN (23:33)
[2018-04-02] VITALS (10 sets, daily range): BP systolic 104–141; BP diastolic 67–87; PULSE 85–103; RESP 18–23; TEMP 97.4–98; O2SAT 94–98
[2018-04-02] MEDS: RESP: ALBUTEROL 2.5 MG/IPRATROPIUM 0.5 MG NEB (SCH) INH ×5 (03:17→19:30)
[2018-04-02] MEDS: ALPRAZolam 0.5 MG TAB PO SCH ×4 (07:01→23:11)
[2018-04-02] MEDS: ACETAMINOPHEN/HYDROcodone 325 MG/5 MG TAB PO PRN ×2 (08:35→17:27)
[2018-04-02] MEDS: FAMOTIDINE 20 MG TAB PO SCH ×2 (08:35→20:49)
[2018-04-02] MEDS: predniSONE 20 MG TAB PO SCH (08:36)
[2018-04-02] MEDS: NICOTINE 21 MG/24 HR PATCH TD SCH (08:36)
[2018-04-02] MEDS: ASPIRIN 81 MG CHEW TAB CHEW SCH (08:36)
[2018-04-02] MEDS: SODIUM CHLORIDE 0.9% FLUSH 10 ML FLUSH IV FLUSH SCH ×2 (08:37→20:49)
[2018-04-02] MEDS: DOCUSATE SODIUM 50 MG/SENNA 8.6 MG TAB PO SCH ×2 (08:37→20:14)
[2018-04-02] MEDS: BUDESONIDE-FORMOTEROL 160/4.5 MCG INHALER INH SCH ×2 (09:00→20:50)
[2018-04-02] MEDS: TIOTROPIUM BROMIDE 18 MCG INH INH SCH (09:00)
--- NOTE | 2018-04-02 09:12 | HHI.FPPN ---
Subjective Remarks 63 yo female with COPD, h/o breast cancer, and CAD admitted for COPD exacerbation and possible pneumonia being seen for follow up. Feels better regarding her breathing this morning, but still fatigued and anxious/tremulous as well as globally weak. Slight chest pain improved. No swelling, no abdominal pain. (Elio Flores MD R2) Objective Vitals Vital Signs Date Time Temp Pulse Resp B/P (MAP) Pulse Ox O2 Delivery O2 Flow Rate FiO2 04/02/18 07:40 95 Nasal Cannula 2.00 04/02/18 03:45 103 04/02/18 03:26 97.4 96 18 109/67 (81) 95 04/01/18 23:59 97.5 102 18 112/68 (83) 92 04/01/18 23:57 105 04/01/18 20:41 97.2 112 18 126/77 (93) 98 04/01/18 20:00 Room Air 04/01/18 19:52 90 04/01/18 19:48 98 Nasal Cannula 2.00 04/01/18 17:31 97.7 105 20 115/69 (84) 95 04/01/18 16:00 98 04/01/18 15:45 97.4 100 18 115/82 (93) 95 04/01/18 15:00 88 04/01/18 14:00 100 04/01/18 13:00 104 04/01/18 12:01 90 04/01/18 11:30 97.7 96 18 115/75 (88) 98 04/01/18 11:00 95 04/01/18 10:00 90 04/01/18 09:15 95 Nasal Cannula 4.00 I/O 04/01/18 04/01/18 04/01/18 04/02/18 04/02/18 04/02/18 07:00 15:00 23:00 07:00 15:00 23:00 Intake Total 240 ml 720 ml 720 ml Output Total 500 ml 250 ml Balance 240 ml 220 ml 470 ml Intake Oral 240 ml 720 ml 720 ml Output Urine Total 500 ml 250 ml # Voids 1 1 # Bowel Movements 0 0 (Elio Flores MD R2) Result Diagram: 04/01/18 1018 04/01/18 1018 Imaging Last Impressions Chest X-Ray 03/31/18 1712 Signed Impressions: CONCLUSION: Negative examination. CT Angiography 03/31/18 0000 Signed Impressions: CONCLUSION: 1. No pulmonary embolus. 2. Emphysematous change. 3. Right middle lobe infiltrate. This may be infectious in etiology. 4. Small right effusion. 5. Small area of mucus plugging involving the left lower lobe without atelecta sis. Objective Remarks CONSTITUTIONAL/GEN: normally nourished, sitting up in bed, pleasant, fatigued, NAD ENT: She has dentures LUNGS: Speaking in full sentences without pause. Poor inspiratory effort. Diminished breath sounds throughout, slight coarseness, improved from previously CARDIOVASCULAR: NRRR without murmur or gallop. No significant edema. GI/ABD: non-distended NEURO: No focal deficits. SKIN: color normal, no rashes noted. MUSC: back is normal in appearance. Extremities are normal in appearance. PSYCH/MENTAL STATUS: Awake, alert. Medications and IVs Current Medications Medications (Trade) Dose Ordered Sig/Kong Route Start Time Stop Time Status Last Admin (NS Flush) 2 ml BID IV FLUSH 04/01/18 09:00 04/01/18 21:00 (NS Flush) 2 ml UNSCH PRN IV FLUSH 03/31/18 22:15 (Duoneb Neb) 1 ampule Q4HR NEB INH 04/01/18 00:00 04/02/18 07:36 (Albuterol Neb) 2.5 mg Q2HR NEB PRN INH 03/31/18 22:15 (Symbicort 160-4.5 Mcg Inh) 2 puff Q12HR INH 04/01/18 09:00 04/01/18 08:08 (Deltasone) 40 mg DAILY PO 04/01/18 09:00 04/02/18 08:36 (Levaquin) 750 mg Q24H PO 04/01/18 20:00 04/01/18 21:17 (Habitrol 21 Mg Patch.24 Hr) 1 patch DAILY TD 04/01/18 09:00 04/02/18 08:36 (Lovenox Inj) 40 mg Q24H SQ 03/31/18 22:15 04/01/18 21:20 (Pepcid) 20 mg BID PO 04/01/18 09:00 04/02/18 08:35 (Tylenol) 650 mg Q6HR PRN PO 04/01/18 00:45 (Hodgen 5-325 Mg) 1 tab Q6H PRN PO 04/01/18 00:45 04/02/18 08:35 (Morphine Inj) 2 mg Q4H PRN IV PUSH 04/01/18 00:45 04/01/18 00:53 (Aspirin Chew) 81 mg DAILY CHEW 04/01/18 09:00 04/02/18 08:36 (Vicky-Colace) 1 tab BID PO 04/01/18 10:00 (Milk Of Magnesia Liq) 30 ml Q12H PRN PO 04/01/18 09:30 (Senokot) 17.2 mg Q12H PRN PO 04/01/18 09:30 (Dulcolax Supp) 10 mg DAILY PRN RECTAL 04/01/18 09:30 (Lactulose Liq) 30 ml DAILY PRN PO 04/01/18 09:30 (Xanax) 0.5 mg Q6HR PO 04/01/18 12:30 04/02/18 07:01 (Desyrel) 50 mg HS PO 04/01/18 21:00 04/01/18 21:17 (Restoril) 15 mg HS PRN PO 04/01/18 14:15 04/01/18 23:33 (Spiriva Inh) 18 mcg DAILY INH 04/01/18 14:30 04/01/18 15:09 (Abilify) 10 mg DAILY PO 04/01/18 14:30 04/01/18 15:09 (Elio Flores MD R2) A/P Assessment and Plan 63 YO female with PMHx STEMI in 2013 with heart cath; breast, ovarian and uterine cancer s/p chemo, mastectomy/breast reconstruction and hysterectomy; HLD , HTN, fibromyalgia, depression/anxiety and COPD who presents with: (Elio Flores MD R2) Attending Attestation Patient seen and examined. Case reviewed and discussed with the resident team. Agree with plan of care as discussed with me and documented in the resident note. (Beatrice Blackmon MD) Problem List: (1) COPD exacerbation ICD Codes: J44.1 - Obstructive chronic bronchitis with exacerbation Status: Acute Plan: Pt with SOB and CP on admission with extensive smoking hx and COPD. Progressively worsening the last 3 months and now with RML opacity. -Duonebs q4h -Albuterol nebs q2h -Symbicort 2 puffs q12h -Supplemental O2 to keep O2 sats >88% -Prednisone 40mg PO daily x3 -Received levaquin 500mg IV once in ED -Levaquin 750 mg PO daily x4 days -Pulse ox continuous -Home O2 walk test -PT to evaluate for deconditioning (2) Pneumonia ICD Codes: J18.9 - Pneumonia, unspecified organism Status: Acute Plan: Symptoms improving, WBC normalizing CTA showing RML infiltrate vs opacity, WBC 19.6 with left shift, pt with subjective fevers over the past 2 days; treat empirically -Levaquin as above -Steroids as above -Breathing treatment as above (3) SOB (shortness of breath) ICD Codes: R06.02 - Shortness of breath Status: Acute Plan: As per above (4) Chest pain due to coronary artery disease ICD Codes: R07.9 - Chest pain, unspecified; I25.10 - Atherosclerotic heart disease of [place] coronary artery without angina pectoris Plan: Likely due to breathing difficulty from COPD plus pneumonia Troponin negative x3 TA has ruled out PE and per discussion with Dr Fajardo in radiology, low suspicion for dissection -ASA 325 mg chew in ED -Tylenol 650 mg PO q6h pain 1-3/Temp >100.4 -Hodgen 5-325mg PO q6h pain 4-10 -Morphine 2mg q3h IV breakthrough pain -ECHO pending (5) Depression ICD Codes: F32.9 - Depression Status: Chronic Plan: Continue pt's home meds -Prozac 40mg daily -Abilify 15 mg daily (6) Anxiety ICD Codes: F41.9 - Anxiety Status: Acute Plan: Resuming pt's reported Xanax 0.5mg q6h (7) Tobacco abuse ICD Codes: Z72.0 - Tobacco use Status: Acute Plan: Nicotine patch q24h (8) FEN/GI/PPx Plan: Fluids: PO fluids with 2L fluid restriction due to mild hyponatremia Electrolytes: Fluid restriction as above and KCl 50meq PO for K+ at 3.1; monitor with daily BMP Nutrition: Heart healthy diet GI: Famotidine 20mg BID PPx: Lovenox as above CM consult to assess for needs COPD consult Dispo: Home +/- home health versus rehab depending on PT evaluation (Elio Flores MD R2) Problem Qualifiers (1) Pneumonia: Qualified Codes: J18.1 - Lobar pneumonia, unspecified organism Elio Flores MD R2 Apr 02, 2018 09:12 Beatrice Blackmon MD Apr 02, 2018 14:48
[2018-04-02] MEDS: ARIPiprazole 10 MG TAB PO SCH (10:34)
[2018-04-02 13:04] LABS: AUTOMATED NEUTROPHIL # 14.6 TH/MM3 (1.8-7.7); BASOPHIL % 0.2 % (0.0-2.0); EOSINOPHIL % 0.1 % (0.0-4.0); HEMATOCRIT 35.4 % (35.0-46.0); HEMOGLOBIN 12.2 GM/DL (11.6-15.3); LYMPH % 2.5 % (9.0-44.0); LYMPHOCYTE # 0.4 TH/MM3 (1.0-4.8); MEAN CELL VOLUME 92.1 FL (80.0-100.0); MEAN CORPUSCULAR HEMOGLOBIN 31.6 PG (27.0-34.0); MEAN CORPUSCULAR HGB CONC 34.3 % (32.0-36.0); MEAN PLATELET VOLUME 7.2 FL (7.0-11.0); MONOCYTE # 0.8 TH/MM3 (0-0.9); NEUT % 92.2 % (16.0-70.0); PLATELET COUNT 258 TH/MM3 (150-450); RED BLOOD COUNT 3.85 MIL/MM3 (4.00-5.30); RED CELL DISTRIBUTION WIDTH 14.8 % (11.6-17.2); WHITE BLOOD COUNT 15.9 TH/MM3 (4.0-11.0)
[2018-04-02] MEDS ORDERED: PRED20 PO (13:24)
[2018-04-02] MEDS ORDERED: LEVA750T9 PO (13:24)
[2018-04-02] MEDS ORDERED: FAMO20TA2 PO (13:24)
[2018-04-02] MEDS ORDERED: OXYGENDME NAS.CANULA ×2 (13:27→15:51)
--- NOTE | 2018-04-02 13:27 | HHI.FF ---
Face to Face Verification Diagnosis: (1) COPD exacerbation (2) Pneumonia (3) Chest pain due to coronary artery disease (4) Tobacco abuse (5) Fibromyalgia (6) COPD (chronic obstructive pulmonary disease) Physical Therapy Order: Evaluate and Treat Home Health Nursing Order: Medical education Signs/symptoms of disease process Oxygen administration education Nursing assessment with vital signs Oil Pit Attendant Order: To Evaluate: Living conditions/environment, Support services Order: To Provide: Community services I have seen patient Ravi Frost on 04/02/18. My clinical findings support the need for the requested home health care services because: Patient has SOB Deconditioned w/ increased weakness Need for psychosocial assistance I certify that my clinical findings support that this patient is homebound because: Hx COPD- exertion dyspnea/weakness Need for psychosocial assistance Elio Flores MD R2 Apr 02, 2018 13:27
[2018-04-02] MEDS ORDERED: SPIRCAP INH (13:30)
[2018-04-02] MEDS ORDERED: SYMB160A INH (13:30)
[2018-04-02] MEDS ORDERED: VENTAER INH (13:30)
[2018-04-02] MEDS ORDERED: TRAZ100T10 PO (13:31)
[2018-04-02] MEDS ORDERED: ALBU0.08 NEB (13:32)
--- NOTE | 2018-04-02 13:55 | ECHRPT ---
Indication: CHEST PAIN CONCLUSIONS The left ventricular systolic function is mildly reduced with an estimated ejection fraction in the range of 45- 50%. Trace mitral valve regurgitation. There is trace tricuspid valve regurgitation. BP: / HR: Rhythm: MEASUREMENTS (Male / Female) Normal Values Technical Quality: 2D ECHO LV Diastolic Diameter PLAX 4.4 cm 4.2 - 5.9 / 3.9 - 5.3 cm LV Systolic Diameter PLAX 3.5 cm IVS Diastolic Thickness 1.0 cm 0.6 - 1.0 / 0.6 - 0.9 cm LVPW Diastolic Thickness 0.7 cm 0.6 - 1.0 / 0.6 - 0.9 cm LV Relative Wall Thickness 0.4 RV Internal Dim ED PLAX 1.8 cm LV Ejection Fraction MOD BP 50.0 % >= 55 % LV Ejection Fraction MOD 4C 44.2 % LV Ejection Fraction 4C AL 46.9 % LV Ejection Fraction MOD 2C 56.3 % LV Ejection Fraction 2C AL 56.3 % M-MODE Aortic Root Diameter MM 3.0 cm AV Cusp Separation MM 1.9 cm DOPPLER Mitral E Point Velocity 69.6 cm/s Mitral A Point Velocity 75.0 cm/s Mitral E to A Ratio 0.9 TR Peak Velocity 248.0 cm/s TR Peak Gradient 24.6 mmHg FINDINGS LEFT VENTRICLE Normal left ventricular size. Wall thickness is normal. The left ventricular systolic function is mildly reduced with an estimated ejection fraction in the range of 45- 50%. RIGHT VENTRICLE Normal right ventricular size and systolic function. LEFT ATRIUM The left atrial size is normal. RIGHT ATRIUM The right atrial size is normal. ATRIAL SEPTUM Normal atrial septal thickness AORTA The aortic root and proximal ascending aorta are normal in size on limited imaging. MITRAL VALVE Mild mitral annular calcification. No mitral valve stenosis. Trace mitral valve regurgitation. AORTIC VALVE Probably trileaflet aortic valve. No aortic valve stenosis or regurgitation. TRICUSPID VALVE Structurally normal tricuspid valve. There is trace tricuspid valve regurgitation. No tricuspid valve stenosis. PULMONARY VALVE The pulmonary valve is not well visualized. VESSELS The inferior vena cava is normal in size. PERICARDIUM No pericardial effusion. Franklyn Pulido DO (Electronically Signed) Final Date:02 April 2018 13:54
--- NOTE | 2018-04-02 15:12 | HHI.DS ---
Discharge Summary Admission Date Mar 31, 2018 at 22:30 Discharge Date: Apr 02, 2018 Admitting Diagnosis COPD exacerbation, pneumonia, failed outpatient treatment (1) COPD exacerbation Diagnosis: Principal ICD Codes: J44.1 - Obstructive chronic bronchitis with exacerbation Status: Acute (2) Pneumonia Diagnosis: Principal ICD Codes: J18.9 - Pneumonia, unspecified organism Status: Acute (3) SOB (shortness of breath) Diagnosis: Principal ICD Codes: R06.02 - Shortness of breath Status: Acute (4) Chest pain due to coronary artery disease Diagnosis: Secondary ICD Codes: R07.9 - Chest pain, unspecified; I25.10 - Atherosclerotic heart disease of [place] coronary artery without angina pectoris (5) Depression Diagnosis: Secondary ICD Codes: F32.9 - Depression Status: Chronic (6) Anxiety Diagnosis: Secondary ICD Codes: F41.9 - Anxiety Status: Acute (7) Tobacco abuse Diagnosis: Secondary ICD Codes: Z72.0 - Tobacco use Status: Acute Brief History Ms Frost is a 63 YO female with PMHx STEMI in 2012 with heart cath, breast, ovarian and uterine cancer s/p chemo, mastectomy/breast reconstruction and hysterectomy, HLD, HTN, fibromyalgia, depression/anxiety and COPD who presents to the ED in acute respiratory distress. Pt states she has been getting progressively SOB for the last three months and then today acutely worse with CP that is substernal with intense radiation to her right middle back. She also states she has had fevers for at least 2 days and chills yesterday. She is a 1/ 2 ppd smoker for as long as she can remember, but today states she does not want to ever smoke again. Reports that she has no supplemental O2 requirement at home, and takes spiriva, proair and symbicort at home to help control her COPD along with occasional albuterol nebulizer. CBC/BMP: 04/02/18 1227 04/01/18 1018 Significant Findings Laboratory Tests Test 03/31/18 12:00 03/31/18 20:00 03/31/18 20:58 03/31/18 23:50 White Blood Count 19.6 TH/MM3 (4.0-11.0) Neutrophils (%) (Auto) 88.6 % (16.0-70.0) Lymphocytes (%) (Auto) 5.7 % (9.0-44.0) Neutrophils # (Auto) 17.3 TH/MM3 (1.8-7.7) Monocytes # (Auto) 1.0 TH/MM3 (0-0.9) Albumin 3.2 GM/DL (3.4-5.0) Aspartate Amino Transf (AST/SGOT) 9 U/L (15-37) Sodium Level 134 MEQ/L (136-145) Potassium Level 3.1 MEQ/L (3.5-5.1) Estimat Glomerular Filtration Rate 65 ML/MIN (>89) Troponin I LESS THAN 0.02 NG/ML LESS THAN 0.02 NG/ML Lipase 55 U/L (73-393) Urine Bacteria RARE /hpf (NONE) Test 04/01/18 10:18 04/02/18 12:27 White Blood Count 15.3 TH/MM3 (4.0-11.0) 15.9 TH/MM3 (4.0-11.0) Neutrophils (%) (Auto) 93.1 % (16.0-70.0) 92.2 % (16.0-70.0) Lymphocytes (%) (Auto) 2.7 % (9.0-44.0) 2.5 % (9.0-44.0) Neutrophils # (Auto) 14.2 TH/MM3 (1.8-7.7) 14.6 TH/MM3 (1.8-7.7) Lymphocytes # (Auto) 0.4 TH/MM3 (1.0-4.8) 0.4 TH/MM3 (1.0-4.8) Random Glucose 124 MG/DL (74-106) Estimat Glomerular Filtration Rate 72 ML/MIN (>89) Red Blood Count 3.85 MIL/MM3 (4.00-5.30) Imaging Last Impressions Chest X-Ray 03/31/18 1712 Signed Impressions: CONCLUSION: Negative examination. CT Angiography 03/31/18 0000 Signed Impressions: CONCLUSION: 1. No pulmonary embolus. 2. Emphysematous change. 3. Right middle lobe infiltrate. This may be infectious in etiology. 4. Small right effusion. 5. Small area of mucus plugging involving the left lower lobe without atelecta sis. PE at Discharge CONSTITUTIONAL/GEN: normally nourished, sitting up in bed, pleasant, fatigued, NAD ENT: She has dentures LUNGS: Speaking in full sentences without pause. Poor inspiratory effort. Diminished breath sounds throughout, slight coarseness, improved from previously CARDIOVASCULAR: NRRR without murmur or gallop. No significant edema. GI/ABD: non-distended NEURO: No focal deficits. SKIN: color normal, no rashes noted. MUSC: back is normal in appearance. Extremities are normal in appearance. PSYCH/MENTAL STATUS: Awake, alert. Hospital Course Admitted for COPD exacerbation and pneumonia. She also had chest pain; ACS was ruled out with serial troponin and EKGs. Regarding COPD exacerbation, she improved with antibiotics, steroids, and breathing treatments. She did have an increased oxygen requirement and due to hypoxia with exertion will need oxygen at home. This is being arranged prior to discharge. At time of discharge her respiratory status had significantly improved compared to admission. Pt Condition on Discharge: Stable Discharge Disposition: Disch w/ Home Health Serv Discharge Instructions DIET: Follow Instructions for: As Tolerated, No Restrictions Activities you can perform: Regular-No Restrictions Follow up Referrals: PCP Follow-up - 3-5 Days New Medications: Albuterol Neb (Albuterol Neb) 2.5 Mg/3 Ml Neb 2.5 MG NEB QID NEB for Breathing Treatment for 5 Days, #60 NEBULE 0 Refills Oxygen (O2) (Oxygen (O2)) Device LITER NICOLE.CANULA CONTINUOUS for Prevent Hypoxemia, #2 Oxygen Concentrator Portable Gaseous 2 L/min via Nasal Canula Continuous For 99 months Famotidine (Famotidine) 20 Mg Tab 20 MG PO BID, #4 TAB Levofloxacin (Levaquin) 750 Mg Tablet 750 MG PO Q24H, #7 TAB Prednisone (Prednisone) 20 Mg Tab 40 MG PO DAILY, #2 TAB Continued Medications: Albuterol 18 GM Inh (Ventolin Hfa 18 GM Inh) 90 Mcg/Act Aer 2 PUFF INH Q4-6H PRN for SHORTNESS OF BREATH, #1 INHALER 0 Refills Budesonide-Formoterol Inh (Symbicort Inh) 160-4.5 Mcg/Act Aero 2 PUFF INH Q12HR, #1 INHALER 0 Refills Tiotropium Inh (Spiriva Handihaler) 18 Mcg Cap 18 MCG INH DAILY for COPD, #30 CAP 0 Refills 1 capsule = 18 mcg Trazodone (Trazodone) 100 Mg Tablet 200 MG PO HS for Control Depression, #30 TAB 0 Refills Elio Flores MD R2 Apr 02, 2018 15:12
[2018-04-02] MEDS: traZODone HCL 50 MG TAB PO SCH (20:49)
[2018-04-02] MEDS: LEVOFLOXACIN 750 MG TAB PO SCH (20:49)
[2018-04-02] MEDS: MORPHINE SULFATE 4 MG/ML INJ IV PUSH PRN (20:50)
[2018-04-02] MEDS: ENOXAPARIN SODIUM 40 MG/0.4 ML SYRINGE SQ SCH (23:11)
[2018-04-03] VITALS (11 sets, daily range): BP systolic 104–145; BP diastolic 60–91; PULSE 82–113; RESP 16–20; TEMP 97.4–97.9; O2SAT 93–99
[2018-04-03] MEDS: RESP: ALBUTEROL 2.5 MG/IPRATROPIUM 0.5 MG NEB (SCH) INH ×5 (00:16→21:26)
[2018-04-03] MEDS: TEMAZEPAM 15 MG CAP PO PRN (01:40)
[2018-04-03] MEDS: ACETAMINOPHEN/HYDROcodone 325 MG/5 MG TAB PO PRN ×3 (05:50→21:43)
[2018-04-03] MEDS: ALPRAZolam 0.5 MG TAB PO SCH ×4 (07:08→22:59)
--- NOTE | 2018-04-03 08:46 | HHI.FPPN ---
Subjective Remarks Patient states she is doing well. No acute events overnight. Vitals stable. No chest pain, SOB, good appetite. Objective Vitals Vital Signs Date Time Temp Pulse Resp B/P (MAP) Pulse Ox O2 Delivery O2 Flow Rate FiO2 04/03/18 07:36 97 Nasal Cannula 2.00 04/03/18 04:00 113 04/03/18 03:37 97.4 99 18 129/91 (104) 97 04/03/18 00:16 99 Nasal Cannula 2.00 04/02/18 23:53 97.8 91 18 141/87 (105) 98 04/02/18 20:27 97.9 98 18 112/68 (83) 96 04/02/18 20:00 Nasal Cannula 2.00 04/02/18 20:00 92 04/02/18 16:00 97.5 95 22 124/77 (93) 94 04/02/18 16:00 89 04/02/18 15:55 96 Nasal Cannula 2.00 04/02/18 12:00 97.6 92 22 110/76 (87) 96 04/02/18 12:00 98 04/02/18 11:41 6.00 I/O 04/02/18 04/02/18 04/02/18 04/03/18 04/03/18 04/03/18 07:00 15:00 23:00 07:00 15:00 23:00 Intake Total 720 ml 680 ml 480 ml Output Total 250 ml 200 ml 550 ml Balance 470 ml 480 ml -70 ml Intake Oral 720 ml 680 ml 480 ml Output Urine Total 250 ml 200 ml 550 ml # Bowel Movements 0 0 0 Result Diagram: 04/02/18 1227 04/01/18 1018 Objective Remarks CONSTITUTIONAL/GEN: normally nourished, sitting up in bed, pleasant,NAD ENT: She has dentures LUNGS: Speaking in full sentences without pause. Clear to auscultation bilaterally CARDIOVASCULAR: NRRR without murmur or gallop. No significant edema. GI/ABD: non-distended NEURO: No focal deficits. SKIN: color normal, no rashes noted. MUSC: back is normal in appearance. Extremities are normal in appearance. PSYCH/MENTAL STATUS: Awake, alert. A/P Assessment and Plan 63 YO female with PMHx STEMI in 2013 with heart cath; breast, ovarian and uterine cancer s/p chemo, mastectomy/breast reconstruction and hysterectomy; HLD , HTN, fibromyalgia, depression/anxiety and COPD who presents with: Discharge Planning Medically cleared for DC w/home O2. It appears this may not happen until Thursday due to pending insurance authorization. Problem List: (1) COPD exacerbation ICD Codes: J44.1 - Obstructive chronic bronchitis with exacerbation Status: Acute Plan: -Duonebs q4h -Albuterol nebs q2h -Symbicort 2 puffs q12h -Supplemental O2 to keep O2 sats >88% -Prednisone 40mg PO daily , day 3 of course. Discontinue tomorrow -Received levaquin 500mg IV once in ED -Levaquin 750 mg PO daily Day 3 for total PO course of 4 days. -Pulse ox continuous -PT (2) Pneumonia ICD Codes: J18.9 - Pneumonia, unspecified organism Status: Acute Plan: -Levaquin as above for total course of 5 days -Steroids as above -Breathing treatment as above (3) Chest pain due to coronary artery disease ICD Codes: R07.9 - Chest pain, unspecified; I25.10 - Atherosclerotic heart disease of [place] coronary artery without angina pectoris Status: Resolved Plan: Resolved ACS ruled out Echo shows EF of 45-50%, Trace MV and TV regurg. Sx likely not due to CHF (4) Depression ICD Codes: F32.9 - Depression Status: Chronic Plan: Con't home meds (5) Anxiety ICD Codes: F41.9 - Anxiety Status: Acute Plan: con't home meds (6) Tobacco abuse ICD Codes: Z72.0 - Tobacco use Status: Acute Plan: Nicotine patches (7) FEN/GI/PPx Plan: Fluids: PO fluids with 2L fluid restriction due to mild hyponatremia Electrolytes: as needed Nutrition: Heart healthy diet GI: Famotidine 20mg BID PPx: Lovenox as above Problem Qualifiers (1) Pneumonia: Qualified Codes: J18.1 - Lobar pneumonia, unspecified organism Megan Engel MD R1 Apr 03, 2018 08:46
[2018-04-03] MEDS: FAMOTIDINE 20 MG TAB PO SCH ×2 (10:51→21:00)
[2018-04-03] MEDS: DOCUSATE SODIUM 50 MG/SENNA 8.6 MG TAB PO SCH ×2 (10:51→21:00)
[2018-04-03] MEDS: ARIPiprazole 10 MG TAB PO SCH (10:51)
[2018-04-03] MEDS: predniSONE 20 MG TAB PO SCH (10:52)
[2018-04-03] MEDS: ASPIRIN 81 MG CHEW TAB CHEW SCH (10:52)
[2018-04-03] MEDS: NICOTINE 21 MG/24 HR PATCH TD SCH (10:52)
[2018-04-03] MEDS: TIOTROPIUM BROMIDE 18 MCG INH INH SCH (10:53)
[2018-04-03] MEDS: BUDESONIDE-FORMOTEROL 160/4.5 MCG INHALER INH SCH ×2 (10:54→21:43)
[2018-04-03] MEDS: SODIUM CHLORIDE 0.9% FLUSH 10 ML FLUSH IV FLUSH SCH ×2 (10:54→21:42)
[2018-04-03] MEDS: MORPHINE SULFATE 4 MG/ML INJ IV PUSH PRN ×2 (11:01→18:16)
[2018-04-03] MEDS: traZODone HCL 50 MG TAB PO SCH (21:41)
[2018-04-03] MEDS: ENOXAPARIN SODIUM 40 MG/0.4 ML SYRINGE SQ SCH (21:41)
[2018-04-03] MEDS: LEVOFLOXACIN 750 MG TAB PO SCH (21:41)
[2018-04-04] VITALS (8 sets, daily range): BP systolic 116–160; BP diastolic 64–91; PULSE 86–104; RESP 14–19; TEMP 97.4–98; O2SAT 94–98
[2018-04-04] MEDS: MORPHINE SULFATE 4 MG/ML INJ IV PUSH PRN ×3 (02:33→21:35)
[2018-04-04] MEDS: RESP: ALBUTEROL 2.5 MG/IPRATROPIUM 0.5 MG NEB (SCH) INH ×4 (03:18→20:27)
[2018-04-04] MEDS: ALPRAZolam 0.5 MG TAB PO SCH ×4 (05:42→23:35)
[2018-04-04] MEDS: ACETAMINOPHEN/HYDROcodone 325 MG/5 MG TAB PO PRN ×2 (06:27→18:41)
--- NOTE | 2018-04-04 08:10 | HHI.FPPN ---
Subjective Remarks No acute events overnight. No chest pain or SOB. Doing well. Objective Vitals Vital Signs Date Time Temp Pulse Resp B/P (MAP) Pulse Ox O2 Delivery O2 Flow Rate FiO2 04/04/18 04:00 Nasal Cannula 2.00 04/04/18 04:00 97.5 91 16 137/88 (104) 97 04/04/18 00:00 86 04/04/18 00:00 Nasal Cannula 2.00 04/04/18 00:00 97.4 96 15 127/79 (95) 98 04/03/18 20:00 97.9 94 16 145/84 (104) 97 04/03/18 20:00 95 04/03/18 20:00 Nasal Cannula 2.00 04/03/18 17:00 102 04/03/18 16:30 97.6 89 20 125/78 (94) 93 04/03/18 15:40 93 Nasal Cannula 2.00 04/03/18 12:10 97.8 87 20 104/60 (75) 99 04/03/18 12:00 82 04/03/18 12:00 Nasal Cannula 2.00 04/03/18 08:15 Nasal Cannula 2.00 I/O 04/03/18 04/03/18 04/03/18 04/04/18 04/04/18 04/04/18 07:00 15:00 23:00 07:00 15:00 23:00 Intake Total 480 ml 720 ml 400 ml Output Total 550 ml 950 ml Balance -70 ml 720 ml -550 ml Intake Oral 480 ml 720 ml 400 ml Output Urine Total 550 ml 950 ml # Voids 3 # Bowel Movements 0 0 Result Diagram: 04/02/18 1227 04/01/18 1018 Objective Remarks CONSTITUTIONAL/GEN: normally nourished, sitting up in bed, pleasant,NAD ENT: She has dentures LUNGS: Speaking in full sentences without pause. Clear to auscultation bilaterally CARDIOVASCULAR: NRRR without murmur or gallop. No significant edema. GI/ABD: non-distended NEURO: No focal deficits. SKIN: color normal, no rashes noted. MUSC: back is normal in appearance. Extremities are normal in appearance. PSYCH/MENTAL STATUS: Awake, alert. A/P Assessment and Plan 63 YO female with PMHx STEMI in 2013 with heart cath; breast, ovarian and uterine cancer s/p chemo, mastectomy/breast reconstruction and hysterectomy; HLD , HTN, fibromyalgia, depression/anxiety and COPD who presents with: Discharge Planning Medically cleared for DC w/home O2. It appears this may not happen until Thursday due to pending insurance authorization. Problem List: (1) COPD exacerbation ICD Codes: J44.1 - Obstructive chronic bronchitis with exacerbation Status: Acute Plan: -Duonebs q6h while awake -Albuterol nebs q2h -Symbicort 2 puffs q12h -Supplemental O2 to keep O2 sats >88% -Prednisone 40mg PO daily , day 3 of course. Discontinue tomorrow -Received levaquin 500mg IV once in ED -Levaquin 750 mg PO daily, 5 day course completed today -Pulse ox continuous -PT (2) Pneumonia ICD Codes: J18.9 - Pneumonia, unspecified organism Status: Acute Plan: -Levaquin as above for total course of 5 days -Steroids as above -Breathing treatment as above (3) Depression ICD Codes: F32.9 - Depression Status: Chronic Plan: Con't home meds (4) Anxiety ICD Codes: F41.9 - Anxiety Status: Acute Plan: con't home meds (5) Tobacco abuse ICD Codes: Z72.0 - Tobacco use Status: Acute Plan: Nicotine patches (6) FEN/GI/PPx Plan: Fluids: PO fluids with 2L fluid restriction due to mild hyponatremia Electrolytes: as needed Nutrition: Heart healthy diet GI: Famotidine 20mg BID PPx: Lovenox as above Problem Qualifiers (1) Pneumonia: Qualified Codes: J18.1 - Lobar pneumonia, unspecified organism Megan Engel MD R1 Apr 04, 2018 08:10
[2018-04-04] MEDS: TIOTROPIUM BROMIDE 18 MCG INH INH SCH (09:00)
[2018-04-04] MEDS: ASPIRIN 81 MG CHEW TAB CHEW SCH (09:00)
[2018-04-04] MEDS: ARIPiprazole 10 MG TAB PO SCH (09:01)
[2018-04-04] MEDS: FAMOTIDINE 20 MG TAB PO SCH ×2 (09:01→21:36)
[2018-04-04] MEDS: DOCUSATE SODIUM 50 MG/SENNA 8.6 MG TAB PO SCH ×2 (09:01→21:36)
[2018-04-04] MEDS: SODIUM CHLORIDE 0.9% FLUSH 10 ML FLUSH IV FLUSH SCH ×2 (09:01→21:36)
[2018-04-04] MEDS: BUDESONIDE-FORMOTEROL 160/4.5 MCG INHALER INH SCH ×2 (09:01→21:36)
[2018-04-04] MEDS: NICOTINE 21 MG/24 HR PATCH TD SCH (09:02)
[2018-04-04] MEDS: ENOXAPARIN SODIUM 40 MG/0.4 ML SYRINGE SQ SCH (21:36)
[2018-04-04] MEDS: traZODone HCL 50 MG TAB PO SCH (21:36)
[2018-04-04] MEDS: LEVOFLOXACIN 750 MG TAB PO SCH (21:36)
[2018-04-05] VITALS (7 sets, daily range): BP systolic 105–128; BP diastolic 65–81; PULSE 91–107; RESP 16–18; TEMP 97.4–98.1; O2SAT 93–98
[2018-04-05] MEDS: ACETAMINOPHEN/HYDROcodone 325 MG/5 MG TAB PO PRN ×2 (02:27→09:00)
[2018-04-05] MEDS: RESP: ALBUTEROL 2.5 MG/IPRATROPIUM 0.5 MG NEB (SCH) INH ×3 (02:30→16:00)
[2018-04-05] MEDS: ALPRAZolam 0.5 MG TAB PO SCH ×2 (05:17→11:59)
[2018-04-05] MEDS: FAMOTIDINE 20 MG TAB PO SCH (08:59)
[2018-04-05] MEDS: NICOTINE 21 MG/24 HR PATCH TD SCH (09:00)
[2018-04-05] MEDS: ASPIRIN 81 MG CHEW TAB CHEW SCH (09:00)
[2018-04-05] MEDS: DOCUSATE SODIUM 50 MG/SENNA 8.6 MG TAB PO SCH (09:00)
[2018-04-05] MEDS: ARIPiprazole 10 MG TAB PO SCH (09:00)
[2018-04-05] MEDS: SODIUM CHLORIDE 0.9% FLUSH 10 ML FLUSH IV FLUSH SCH (09:04)
[2018-04-05] MEDS: BUDESONIDE-FORMOTEROL 160/4.5 MCG INHALER INH SCH (09:04)
[2018-04-05] MEDS: TIOTROPIUM BROMIDE 18 MCG INH INH SCH (09:08)
[2018-04-05] MEDS: MORPHINE SULFATE 4 MG/ML INJ IV PUSH PRN (12:00)
--- NOTE | 2018-04-05 12:02 | HHI.FPPN ---
Subjective Remarks Patient doing well, no acute events overnight. Vitals stable. Objective Vitals Vital Signs Date Time Temp Pulse Resp B/P (MAP) Pulse Ox O2 Delivery O2 Flow Rate FiO2 04/05/18 08:09 97.4 97 16 121/65 (83) 96 04/05/18 08:00 107 04/05/18 08:00 Nasal Cannula 2.00 04/05/18 07:43 97 Nasal Cannula 2.00 04/05/18 04:20 Nasal Cannula 2.00 04/05/18 04:00 97.5 92 18 112/66 (81) 98 04/05/18 04:00 93 04/05/18 00:00 94 04/05/18 00:00 98.1 95 17 128/81 (97) 93 04/05/18 00:00 Nasal Cannula 2.00 04/04/18 20:28 97 Nasal Cannula 2.00 04/04/18 20:00 88 04/04/18 20:00 Nasal Cannula 2.00 04/04/18 20:00 97.5 98 19 160/90 (113) 94 04/04/18 16:00 92 04/04/18 16:00 97.7 104 16 127/64 (85) 96 04/04/18 12:00 94 04/04/18 12:00 98.0 97 16 116/75 (89) 96 I/O 04/04/18 04/04/18 04/04/18 04/05/18 04/05/18 04/05/18 07:00 15:00 23:00 07:00 15:00 23:00 Intake Total 400 ml 640 ml 660 ml Output Total 950 ml 950 ml Balance -550 ml 640 ml -290 ml Intake Oral 400 ml 640 ml 660 ml Output Urine Total 950 ml 950 ml # Voids 4 # Bowel Movements 0 1 0 Result Diagram: 04/02/18 1227 04/01/18 1018 Objective Remarks CONSTITUTIONAL/GEN: normally nourished, sitting up in bed, pleasant,NAD ENT: She has dentures LUNGS: No dyspnea or tachypnea. CARDIOVASCULAR: Regular rate. GI/ABD: non-distended NEURO: No focal deficits. SKIN: color normal, no rashes noted. MUSC: Extremities are normal in appearance. PSYCH/MENTAL STATUS: Awake, alert. A/P Assessment and Plan 63 YO female with PMHx STEMI in 2012 with heart cath; breast, ovarian and uterine cancer s/p chemo, mastectomy/breast reconstruction and hysterectomy; HLD , HTN, fibromyalgia, depression/anxiety and COPD who presents with: Discharge Planning Medically cleared for DC w/home O2. Problem List: (1) COPD exacerbation ICD Codes: J44.1 - Obstructive chronic bronchitis with exacerbation Status: Acute Plan: -Duonebs q6h while awake -Albuterol nebs q2h -Symbicort 2 puffs q12h -Supplemental O2 to keep O2 sats >88% -Status post 5 day course of prednisone and Levaquin -Pulse ox continuous -PT (2) Pneumonia ICD Codes: J18.9 - Pneumonia, unspecified organism Status: Resolved (3) Depression ICD Codes: F32.9 - Depression Status: Chronic Plan: Con't home meds (4) Anxiety ICD Codes: F41.9 - Anxiety Status: Acute Plan: con't home meds (5) Tobacco abuse ICD Codes: Z72.0 - Tobacco use Status: Acute Plan: Nicotine patches (6) FEN/GI/PPx Plan: Fluids: PO fluids with 2L fluid restriction due to mild hyponatremia Electrolytes: as needed Nutrition: Heart healthy diet GI: Famotidine 20mg BID PPx: Lovenox as above Problem Qualifiers (1) Pneumonia: Qualified Codes: J18.1 - Lobar pneumonia, unspecified organism Megan Engel MD R1 Apr 05, 2018 12:02
[2018-04-05] MEDS ORDERED: WALKER WHEELS/F1 MIS (15:52)
--- NOTE | 2018-04-06 10:55 | HHI.DS ---
Discharge Summary Admission Date Mar 31, 2018 at 22:30 Discharge Date: Apr 05, 2018 Admitting Diagnosis COPD exacerbation, pneumonia, failed outpatient treatment (1) COPD exacerbation Diagnosis: Principal ICD Codes: J44.1 - Obstructive chronic bronchitis with exacerbation Status: Acute (2) Pneumonia Diagnosis: Principal ICD Codes: J18.9 - Pneumonia, unspecified organism Status: Resolved (3) Depression Diagnosis: Secondary Plan: Con't home meds ICD Codes: F32.9 - Depression Status: Chronic (4) Anxiety Diagnosis: Secondary ICD Codes: F41.9 - Anxiety Status: Acute (5) Tobacco abuse ICD Codes: Z72.0 - Tobacco use Status: Acute Brief History Ms Frost is a 63 YO female with PMHx STEMI in 2013 with heart cath, breast, ovarian and uterine cancer s/p chemo, mastectomy/breast reconstruction and hysterectomy, HLD, HTN, fibromyalgia, depression/anxiety and COPD who presents to the ED in acute respiratory distress. Pt states she has been getting progressively SOB for the last three months and then today acutely worse with CP that is substernal with intense radiation to her right middle back. She also states she has had fevers for at least 2 days and chills yesterday. She is a 1/ 2 ppd smoker for as long as she can remember, but today states she does not want to ever smoke again. Reports that she has no supplemental O2 requirement at home, and takes spiriva, proair and symbicort at home to help control her COPD along with occasional albuterol nebulizer. CBC/BMP: 04/02/18 1227 PE at Discharge CONSTITUTIONAL/GEN: normally nourished, sitting up in bed, pleasant,NAD ENT: She has dentures LUNGS: No dyspnea or tachypnea. CARDIOVASCULAR: Regular rate. GI/ABD: non-distended NEURO: No focal deficits. SKIN: color normal, no rashes noted. MUSC: Extremities are normal in appearance. PSYCH/MENTAL STATUS: Awake, alert. Hospital Course Admitted for COPD exacerbation and pneumonia. She also had chest pain; ACS was ruled out with serial troponin and EKGs. Regarding COPD exacerbation, she improved with antibiotics, steroids, and breathing treatments. She did have an increased oxygen requirement and due to hypoxia with exertion will need oxygen at home. This is being arranged prior to discharge. At time of discharge her respiratory status had significantly improved compared to admission. She was medically cleared for discharge on 04/02, but home O2 could not be arranged until 04/05. Pt Condition on Discharge: Stable Discharge Disposition: Disch w/ Home Health Serv Discharge Instructions DIET: Follow Instructions for: As Tolerated, No Restrictions Activities you can perform: Regular-No Restrictions Follow up Referrals: PCP Follow-up - 3-5 Days PCP Follow-up @ PCP Follow-up @ [facility] PCP Follow-up New Medications: Albuterol Neb (Albuterol Neb) 2.5 Mg/3 Ml Neb 2.5 MG NEB QID NEB for Breathing Treatment for 5 Days, #60 NEBULE 0 Refills Oxygen (O2) (Oxygen (O2)) Device LITER NICOLE.CANULA CONTINUOUS for Prevent Hypoxemia, #2 Oxygen Concentrator Portable Gaseous 2 L/min via Nasal Canula Continuous For 99 months Walker with Front Wheels (Walker with Front Wheels) 1 Mis Mis EA .XX DIRECTED for Dizziness, #1 0 Refills Use to assist with ambulation as needed Famotidine (Famotidine) 20 Mg Tab 20 MG PO BID, #4 TAB Continued Medications: Albuterol 18 GM Inh (Ventolin Hfa 18 GM Inh) 90 Mcg/Act Aer 2 PUFF INH Q4-6H PRN for SHORTNESS OF BREATH, #1 INHALER 0 Refills Budesonide-Formoterol Inh (Symbicort Inh) 160-4.5 Mcg/Act Aero 2 PUFF INH Q12HR, #1 INHALER 0 Refills Tiotropium Inh (Spiriva Handihaler) 18 Mcg Cap 18 MCG INH DAILY for COPD, #30 CAP 0 Refills 1 capsule = 18 mcg Trazodone (Trazodone) 100 Mg Tablet 200 MG PO HS for Control Depression, #30 TAB 0 Refills Elio Flores MD R2 Apr 06, 2018 10:55
== END 2018-04-05 16:17 | disposition home health service (06) | DRG 190 ==
LOC: NEPE 16:35 → NEDA 20:10 → OBSVTOIN 22:30 → HCIS 04-01 00:02 → N04B 04-01 17:09
PROVIDERS: ADMIT Family Medicine; ATTEND Family Medicine
DX: J44.1 Chronic obstructive pulmonary disease with (acute) exacerbation (principal); J18.9 Pneumonia, unspecified organism; J44.0 Chronic obstructive pulmonary disease with (acute) lower respiratory infection; I25.10 Atherosclerotic heart disease of native coronary artery without angina pectoris; F32.9 Major depressive disorder, single episode, unspecified; F41.9 Anxiety disorder, unspecified; I10 Essential (primary) hypertension; I25.2 Old myocardial infarction; M79.7 Fibromyalgia; F17.210 Nicotine dependence, cigarettes, uncomplicated; E78.5 Hyperlipidemia, unspecified; Z92.21 Personal history of antineoplastic chemotherapy; Z85.43 Personal history of malignant neoplasm of ovary; Z85.3 Personal history of malignant neoplasm of breast; Z85.42 Personal history of malignant neoplasm of other parts of uterus
CPT/HCPCS: 71045; 71275; 80048; 80053; 81001; 82550; 83605; 83690; 83735; 83880; 84484; 85025; 85610; 85730; 87040; 87449; 87804; 93005; 93306; 94150; 94618; 94640; 94664; J1650; J1956; J2270; J2765; J2930; J7512; Q9967